=== PATIENT | male | born 1960 | race African-American/Black ===

== ENCOUNTER 2017-07-24 09:00 | Emergency (ER) | payer SELFPAY ==
[2017-07-24 09:24] LABS: ADD MAN DIFF? NO
[2017-07-24] MEDS: ONDANSETRON PF 4 MG/2 ML VIAL. IV (09:24)
[2017-07-24] MEDS: PANTOPRAZOLE IV PUSH 40 MG VIAL. IVP (09:24)
[2017-07-24 09:30] LABS: BASO # 0.1 x10^3/uL (0.0-0.2); BASO % 1 % (0-3); EOS % 1 % (0-3); HEMATOCRIT 43.9 % (39.0-53.0); LYMPH # 2.4 x10^3/uL (1.0-4.8); LYMPH % 37 % (24-48); MEAN CORPUSCULAR HEMOGLOBIN 33 pg (25-35); MEAN CORPUSCULAR HGB CONC 34 g/dL (31-37); MEAN CORPUSCULAR VOLUME 95 fL (79-100); MONO # 0.7 x10^3/uL (0.0-1.1); MONO % 10 % (0-9); NEUT # 3.4 x10^3uL (1.8-7.7); NEUT % 52 % (31-73); PLATELET COUNT 212 x10^3/uL (140-400); RED BLOOD COUNT 4.62 x10^6/uL (4.30-5.70); RED CELL DISTRIBUTION WIDTH 13.8 % (11.5-14.5); WHITE BLOOD COUNT 6.5 x10^3/uL (4.0-11.0)
[2017-07-24 09:39] LABS: ANION GAP 11 (6-14); BLOOD UREA NITROGEN 17 mg/dL (8-26); BUN/CREATININE RATIO 15 (6-20); CALCIUM 9.3 mg/dL (8.5-10.1); CARBON DIOXIDE 26 mmol/L (21-32); CHLORIDE 100 mmol/L (98-107); CREATININE 1.1 mg/dL (0.7-1.3); GFR 84.1; GLUCOSE 110 mg/dL (70-99); POTASSIUM 3.9 mmol/L (3.5-5.1); SODIUM 137 mmol/L (136-145)
[2017-07-24 09:44] LABS: ALBUMIN 3.9 g/dL (3.4-5.0); ALBUMIN/GLOBULIN RATIO 1.2 (1.0-1.7); ALK PHOS 45 U/L (46-116); ALT (SGPT) 8 U/L (16-63); AST (SGOT) 9 U/L (15-37); LIPASE 79 U/L (73-393); TOTAL PROTEIN 7.2 g/dL (6.4-8.2)
[2017-07-24 09:46] LABS: TROPONINI < 0.017 ng/mL (0.000-0.055)
[2017-07-24] MEDS: IOHEXOL 300 MG/ML 100ML VIAL. IV (10:14)
[2017-07-24 10:48] LABS: BILIRUBIN,URINE MODERATE (NEG); CLARITY,URINE CLEAR; COLOR,URINE AMBER; GLUCOSE,URINE NEGATIVE (NEG); NITRITE,URINE NEGATIVE (NEG); PROTEIN,URINE 30 mg/dL (NEG-TRACE)
[2017-07-24 10:54] LABS: BACTERIA,URINE MOD /HPF (0-FEW); SQUAMOUS EPITHELIAL CELL,UR OCC /LPF
[2017-07-24 10:55] LABS: RBC,URINE OCC /HPF (0-2)
[2017-07-24] MEDS: AZITHROMYCIN 250 MG TABLET. PO (11:57)
== END 2017-07-24 12:34 | disposition home or self-care (01) ==
LOC: ER 09:00
DX: R10.10 Upper abdominal pain, unspecified (principal); R11.10 Vomiting, unspecified; R19.7 Diarrhea, unspecified; K21.9 Gastro-esophageal reflux disease without esophagitis; G43.909 Migraine, unspecified, not intractable, without status migrainosus
CPT/HCPCS: 36415; 71045; 74177; 76705; 80053; 81001; 83690; 84484; 85025; 93005; 96365; 96375; 99285-25; C9113; J0690; J2405; Q0144; Q9967